=== PATIENT | male | born 2000 | race Caucasian/White ===

== ENCOUNTER 2020-12-30 17:38 | Emergency (ER) | payer SELFPAY ==
[~2020-12-30] VITALS: Ht 170.2 cm; Wt 94.7 kg
[2020-12-30 18:06] VITALS: BP 127/78
--- NOTE | 2020-12-30 18:32 | NUR ---
PT CAME IN CO "I FEEL LIKE IM HAVING TROUBLE SWALLOWING, LIKE THERE IS SOMETHING STUCK IN MY THROAT. ITS BEEN 3 MONTHS. IM ALSO FEELING FATIGUED LATELY"
[2020-12-30 19:05] LABS: BASOPHILS % (AUTO) 1 % (0-1); EOSINOPHILS % (AUTO) 3 % (1-7); LYMPHOCYTES % (AUTO) 34 % (22-44); MD NO; MEAN CORPUSCULAR HEMOGLOBIN 31.4 pg (27.5-34.5); MEAN CORPUSCULAR HGB CONC 34.7 g/dL (33.2-36.2); MONOCYTES % (AUTO) 7 % (2-9); NEUTROPHILS % (AUTO) 55 % (42-75); PLATELET COUNT 357 x10^3/uL (130-400); RED BLOOD COUNT 5.06 x10^6/uL (4.38-5.82); RED CELL DISTRIBUTION WIDTH 14.4 % (9.4-14.8)
[2020-12-30 19:13] LABS: ALBUMIN 3.8 g/dL (3.4-5.0); ANION GAP 4 mmol/L (5-15); CALCIUM 8.8 mg/dL (8.5-10.1); CHLORIDE 109 mmol/L (98-107); CREATININE 1.23 mg/dL (0.7-1.3)
== END 2020-12-30 20:26 | disposition home or self-care (01) ==
LOC: ED 19:55
DX: R07.0 Pain in throat (principal)
CPT/HCPCS: 36415; 70360; 80048; 82040; 84439; 84443; 84481; 85025; 99284